=== PATIENT | male | born 1960 | race Hispanic/Latino ===

== ENCOUNTER 2018-03-01 14:45 | Emergency (ER) | payer MEDICAID ==
--- NOTE | 2018-03-01 16:24 | XRay Report ---
FINAL REPORT EXAM: XR SHOULDER 2+V LT HISTORY: shoulder pain TECHNIQUE: 3 views of left shoulder. PRIORS: None. FINDINGS: Fracture of left distal clavicle, with mild distraction. AC joint grossly intact. No dislocation. Degenerative change in the glenohumeral joint. Remainder of osseous and soft tissue structures grossly unremarkable. IMPRESSION: 1. Fracture left distal clavicle.
[2018-03-01] MEDS ORDERED: MOTRIN PO ONE (16:45)
[2018-03-01] MEDS ORDERED: PERCOCET 5/325 PO ONE (16:45)
--- NOTE | 2018-03-01 17:02 | Emergency Department Report ---
HPI - General Chief Complaint: Shoulder Injury Time Seen by Provider: 03/01/18 16:34 - HPI HPI: Room 10 The patient is a 57-year-old male presenting with chief complaint of left shoulder pain. The patient states approximately he slipped and fell down a wet rock injuring his left shoulder and left ribs. The patient states he went to [facility] approximately 3-4 days ago x-ray performed revealing his broken ribs. The patient was sent to room [facility] and there was noted to have bruising about his left shoulder. X- ray was performed to rule out showed an abnormality and the patient was sent to the ED for evaluation. Patient complains of pain in left shoulder and his score 10/10 Location: Left shoulder Duration: Since 01/23/2018 Quality: Pain Severity: 07/03 Modifying factors: [see above] Context: [see above] Mode of transportation: [not driving] ED Past Medical Hx - Past Medical History Previous Medical History?: Yes Hx Hypertension: Yes Additional medical history: hypothyroidism, etoh abuse, hepatitis C, syphilis, rib fracture (02/22/18) - Surgical History Past Surgical History?: Yes Additional Surgical History: right eye surgery, left hand, right knee - Family History Family history: no significant - Social History Smoking Status: Never Smoker Substance Use Type: None (denies illicit drug use), Alcohol (history of alcohol abuse. Currently in [place]) - Medications Home Medications: Home Medications Medication Instructions Recorded Confirmed Last Taken Type oxyCODONE /ACETAMINOPHEN [Percocet 1 - 2 tab PO Q6HR PRN #14 tablet 03/01/18 Unknown Rx 5/325] ED Review of Systems ROS: Stated complaint: LT DISLOCATED SHOULDER Other details as noted in HPI Eyes: denies: eye pain ENT: denies: throat pain Cardiovascular: denies: chest pain Gastrointestinal: denies: abdominal pain Musculoskeletal: arthralgia, myalgia. denies: back pain Neurological: denies: headache Physical Exam - Physical Exam Vital Signs: Vital Signs 03/01/18 14:45 Temperature 97.8 F Pulse Rate 74 Respiratory 18 Rate Blood Pressure 114/79 O2 Sat by Pulse 100 Oximetry Physical Exam: GENERAL: The patient is well-developed well-nourished male lying on stretcher not appearing to be in acute distress. [] HEENT: Normocephalic. Atraumatic. Left Extraocular motions are intact. Patient has moist mucous membranes. NECK: Trachea midline CHEST/LUNGS: Clear to auscultation. There is no respiratory distress noted. HEART/CARDIOVASCULAR: Regular. There is no tachycardia. There is no gallop rub or murmur. ABDOMEN: Abdomen is soft, nontender. Patient has normal bowel sounds. There is no abdominal distention. SKIN: There is ecchymosis about the left shoulder. There is no diaphoresis. NEURO: The patient is awake, alert, and oriented. The patient is cooperative. Cranial nerves II through XII grossly intact (with exception of 2, 3, 4, 6 on the right given right eye abnormality). The patient has normal speech MUSCULOSKELETAL: There is tenderness to palpation of the left shoulder. There is ecchymosis about the shoulder ED Course Vital Signs 03/01/18 14:45 Temperature 97.8 F Pulse Rate 74 Respiratory 18 Rate Blood Pressure 114/79 O2 Sat by Pulse 100 Oximetry ED Medical Decision Making - Radiology Data Radiology results: report reviewed (CT chest), image reviewed (left shoulder x- ray, CT chest) interpreted by me: Left shoulder x-ray-acute distal clavicle fracture CT chest (read by myself)- no pneumothorax. 2 lateral minimally displaced rib fractures [facility] [address] [place] [address] Cat Scan Report Signed Patient: LISHA VELASQUEZ MR#: [id number] : 1960 Acct:[id number] Age/Sex: 57 / M ADM Date: 03/01/18 Loc: ED Attending Dr: Ordering Physician: JORGE DA SILVA MD Date of Service: 03/01/18 Procedure(s): CT chest wo con Accession Number(s): [id number] cc: JORGE DA SILVA MD FINAL REPORT EXAM: CT CHEST WO CON HISTORY: left rib pain after fall TECHNIQUE: Spiral CT scanning of the chest. No IV contrast administered. Multiplanar reformations. PRIORS: None. FINDINGS: Chest: Examination limited due to lack of IV contrast administration. Lungs show mild-moderate elevation or eventration of left hemidiaphragm. Probable mild atelectasis versus scarring scattered in the bilateral lower lungs. No significant parenchymal contusions, lacerations or hemothorax. No apparent pneumothorax. Mediastinal structures are grossly unremarkable. No apparent hematoma or pneumomediastinum. Fractures of left anterolateral ribs 3-6, without significant displacement. More chronic-appearing or remote fractures of right anterolateral ribs 3-7. Degenerative change in the thoracic spine. Probable fatty infiltration in the liver. IMPRESSION: 1. Acute fractures in left upper ribs as reported. Probable remote posttraumatic change and chronic fractures involving right ribs. 2. No other acute intrathoracic findings. Transcribed By: [facility] Dictated By: CHARLENE MCCARTHY MD Electronically Authenticated By: CHARLENE MCCARTHY MD Signed Date/Time: 03/01/181742 DD/ 42 TD/TT: 03/01/181742 - Differential Diagnosis AC separation, clavicle fracture, shoulder dislocation, rib fractures, pneu Critical care attestation.: If time is entered above; I have spent that time in minutes in the direct care of this critically ill patient, excluding procedure time. ED Disposition Clinical Impression: Closed left clavicular fracture, Fracture of rib of left side Disposition: DC/TX-70 ANOTHER TYPE HLTHCARE Is pt being admited?: No Does the pt Need Aspirin: No Condition: Stable Instructions: Clavicle Fracture (ED) Additional Instructions: Return to the emergency department immediately should you develop worsening symptoms, fever, inability to tolerate food or liquid or any other concerns. Prescriptions: oxyCODONE /ACETAMINOPHEN [Percocet 5/325] 1 - 2 tab PO Q6HR PRN #14 tablet PRN Reason: Pain Referrals: ZAHEER PATRICK MD [Primary Care Provider] - 3-5 Days WARREN SARAVIA MD [Staff Physician] - 3-5 Days (Dr. Saravia is an orthopedic surgeon. Please follow up with him for further evaluation) Time of Disposition: 17:50
--- NOTE | 2018-03-01 17:48 | Cat Scan Report ---
FINAL REPORT EXAM: CT CHEST WO CON HISTORY: left rib pain after fall TECHNIQUE: Spiral CT scanning of the chest. No IV contrast administered. Multiplanar reformations. PRIORS: None. FINDINGS: Chest: Examination limited due to lack of IV contrast administration. Lungs show mild-moderate elevation or eventration of left hemidiaphragm. Probable mild atelectasis versus scarring scattered in the bilateral lower lungs. No significant parenchymal contusions, lacerations or hemothorax. No apparent pneumothorax. Mediastinal structures are grossly unremarkable. No apparent hematoma or pneumomediastinum. Fractures of left anterolateral ribs 3-6, without significant displacement. More chronic-appearing or remote fractures of right anterolateral ribs 3-7. Degenerative change in the thoracic spine. Probable fatty infiltration in the liver. IMPRESSION: 1. Acute fractures in left upper ribs as reported. Probable remote posttraumatic change and chronic fractures involving right ribs. 2. No other acute intrathoracic findings.
[2018-03-01 19:52] VITALS: BP 102/76
== END 2018-03-01 20:25 | disposition other institution (70) ==
LOC: ED 14:45
DX: S42.032A Displaced fracture of lateral end of left clavicle, initial encounter for closed fracture (principal); S22.41XA Multiple fractures of ribs, right side, initial encounter for closed fracture; I10 Essential (primary) hypertension; W20.8XXA Other cause of strike by thrown, projected or falling object, initial encounter; Y93.89 Activity, other specified; Y99.8 Other external cause status; Y92.89 Other specified places as the place of occurrence of the external cause
CPT/HCPCS: 71250

== ENCOUNTER 2018-04-01 08:34 | Outpatient (CLI) | payer MEDICAID ==
--- NOTE | 2018-04-01 09:11 | XRay Report ---
AP and lateral right knee: Pain. There is medial subluxation of the femur on the tibial plateau with significant narrowing of both medial and lateral joint compartments. There is no apparent fragmentation of the articular surfaces but there is ginger-articular spurring both medially and laterally. Suspect subchondral cysts involving the lateral tibial plateau. No fracture deformities. Adequate bone mineralization. Moderate suprapatellar effusion. Impression: Severe degenerative changes with subluxation and joint effusion.
== END 2018-04-01 08:35 | disposition home or self-care (01) ==
LOC: XRAY 08:34
PROVIDERS: ATTEND Orthopaedic Surgery
DX: M17.11 Unilateral primary osteoarthritis, right knee (principal); M25.461 Effusion, right knee; I10 Essential (primary) hypertension

== ENCOUNTER 2018-04-01 09:00 | Emergency (ER) | payer MEDICAID ==
[2018-04-01 09:22] VITALS: BP 128/93
[2018-04-01] MEDS ORDERED: NORCO 7.5/325 PO ONE (10:16)
--- NOTE | 2018-04-01 10:16 | Emergency Department Report ---
ED Lower Extremity HPI - General Chief Complaint: Extremity Injury, Lower Stated Complaint: RT KNEE PAIN Time Seen by Provider: 04/01/18 09:58 Source: patient Mode of arrival: Ambulatory Limitations: No Limitations - History of Present Illness Initial Comments: This is a 57-year-old male who presents with left knee pain from falling 4 days ago. Patient reports tripping over a sign in the [place] last . Patient reports falling forward landing on his face and knees and aggravated right knee. Patient reports hearing a loud pop when he fell and feeling unstable on right knee. Patient admits to numbness from toes 2 through 5 on the right foot, this is not new. He is currently being seen by Dr. Saravia for chronic degenerative changes to the right knee. He is currently taking tramadol for pain which is not improving symptoms. Patient reports having x- rays done this morning per Dr. Saravia. He has an appointment next week for follow-up with him for management of chronic pain. In the past he was seen in pain management and [facility] but unable to make appointments because he does not have a car. MD Complaint: knee injury Onset/Timin -: days(s) Injury: Knee: Right Type of Injury: unknown Place: street/outdoors Severity: moderate Severity scale (0 -10): 6 Improves With: nothing Worsens With: weight bearing Context: fall Associated Symptoms: snap/pop sensation, swelling, able to partially bear weight , ambulatory. denies: numbness, tingling, unable to bear weight Treatments Prior to Arrival: cold therapy, NSAIDS - Related Data Previous Rx's Medication Instructions Recorded Last Taken Type oxyCODONE /ACETAMINOPHEN [Percocet 1 - 2 tab PO Q6HR PRN #14 tablet 03/01/18 Unknown Rx 5/325] Tizanidine HCl [Zanaflex] 2 mg PO TID PRN #10 capsule 04/01/18 Unknown Rx Allergies Allergy/AdvReac Type Severity Reaction Status Date / Time codeine Allergy Unknown Verified 03/01/18 15:35 Penicillins Allergy Unknown Verified 03/01/18 15:35 ED Review of Systems ROS: Stated complaint: RT KNEE PAIN Other details as noted in HPI Constitutional: denies: chills, fever Respiratory: denies: cough, shortness of breath, wheezing Cardiovascular: denies: chest pain, palpitations Gastrointestinal: denies: abdominal pain, nausea, diarrhea Musculoskeletal: joint swelling (right knee), arthralgia (right knee). denies: back pain Skin: denies: rash, lesions Neurological: denies: headache, weakness, paresthesias Psychiatric: denies: anxiety, depression ED Past Medical Hx - Past Medical History Hx Hypertension: Yes Additional medical history: hypothyroidism, etoh abuse, hepatitis C, syphilis, rib fracture (02/22/18) - Surgical History Additional Surgical History: right eye surgery, left hand, right knee - Social History Smoking Status: Never Smoker Substance Use Type: None - Medications Home Medications: Home Medications Medication Instructions Recorded Confirmed Last Taken Type oxyCODONE /ACETAMINOPHEN [Percocet 1 - 2 tab PO Q6HR PRN #14 tablet 03/01/18 Unknown Rx 5/325] Tizanidine HCl [Zanaflex] 2 mg PO TID PRN #10 capsule 04/01/18 Unknown Rx ED Physical Exam - General Limitations: No Limitations General appearance: alert, in no apparent distress - Respiratory Respiratory exam: Present: normal lung sounds bilaterally. Absent: respiratory distress - Cardiovascular Cardiovascular Exam: Present: regular rate, normal rhythm. Absent: systolic murmur, diastolic murmur, rubs, gallop - GI/Abdominal GI/Abdominal exam: Present: soft, normal bowel sounds - Expanded Lower Extremity Exam Right Hip exam: Present: normal inspection, full ROM Upper Leg exam: Present: normal inspection, full ROM Knee exam: Present: tenderness, swelling, crepidus, effusion, pain w/ pronation/ supination, pain/laxity with valgus. Absent: abrasion, laceration, ecchymosis, deformity, dislocation, erythema, posterior draw sign, full knee extension (30 extension, patient unable to tolerate passive or active range of motion) Lower Leg exam: Present: normal inspection, full ROM Ankle exam: Present: normal inspection, full ROM Foot/Toe exam: Present: normal inspection, full ROM Neuro vascular tendon exam: Present: no vascular compromise Gait: Positive: observed and limited by pain ED Course Vital Signs 04/01/18 09:17 Temperature 97.8 F Pulse Rate 108 H Respiratory 16 Rate Blood Pressure 128/93 O2 Sat by Pulse 97 Oximetry ED Lower Extremity MDM - Radiology Data Radiology results: report reviewed AP and lateral right knee: Pain. There is medial subluxation of the femur on the tibial plateau with significant narrowing of both medial and lateral joint compartments. There is no apparent fragmentation of the articular surfaces but there is ginger-articular spurring both medially and laterally. Suspect subchondral cysts involving the lateral tibial plateau. No fracture deformities. Adequate bone mineralization. Moderate suprapatellar effusion. Impression: Severe degenerative changes with subluxation and joint effusion. - Medical Decision Making This is a 57 y.o. male presents with chronic right knee pain that was aggravated 4 days ago from a fall. Patient was examined by me. Findings were normal. Patient had x-rays done and this morning per Dr. Saravia, review report , Severe degenerative changes with subluxation and joint effusion. Patient informed of results. Continue taking and tramadol as prescribed by Dr. Saravia and follow-up with him for management of chronic pain. Start zanaflex and f/u with Dr. Saravia and pain management. Patient discharged home in stable condition. Follow up with PCP and orthopedics in 2-3 days. Critical care attestation.: If time is entered above; I have spent that time in minutes in the direct care of this critically ill patient, excluding procedure time. ED Disposition Clinical Impression: Effusion, right knee Degenerative joint disease Qualifiers: Osteoarthritis location: knee Osteoarthritis type: primary Laterality: right Qualified Code(s): M17.11 - Unilateral primary osteoarthritis, right knee Disposition: TO HOME OR SELFCARE Is pt being admited?: No Does the pt Need Aspirin: No Condition: Stable Instructions: Osteoarthritis (ED), Knee Effusion (ED) Additional Instructions: Rest Use ice or heat on affected area for 20 minutes and off for 2 hours. Take pain medication as needed for pain. Follow up with Primary Care Provider in 2-3 days. Prescriptions: Tizanidine HCl [Zanaflex] 2 mg PO TID PRN #10 capsule PRN Reason: Muscle Spasm Referrals: [facility] [Outside] - 3-5 Days WARREN SARAVIA MD [Staff Physician] - 3-5 Days Time of Disposition: 11:32 Print Language: IRISH
== END 2018-04-01 12:15 | disposition home or self-care (01) ==
LOC: ED 09:00
DX: M17.11 Unilateral primary osteoarthritis, right knee (principal); I10 Essential (primary) hypertension; E03.9 Hypothyroidism, unspecified; Z88.0 Allergy status to penicillin; Z88.5 Allergy status to narcotic agent; W18.30XA Fall on same level, unspecified, initial encounter; Y93.89 Activity, other specified; Y99.8 Other external cause status; Y92.89 Other specified places as the place of occurrence of the external cause
CPT/HCPCS: 99282

== ENCOUNTER 2018-04-17 10:19 | Emergency (ER) | payer MEDICAID ==
[2018-04-17] MEDS ORDERED: TORADOL IM ONE (10:49)
[2018-04-17] MEDS ORDERED: PERCOCET 5/325 PO ONE (10:49)
--- NOTE | 2018-04-17 10:59 | Emergency Department Report ---
Chief Complaint: Extremity Injury, Lower Stated Complaint: PAIN IN (R) KNEE/FEELS OUT OF PLACE Time Seen by Provider: 04/17/18 10:38 - HPI History of Present Illness: 57-year-old male presents to the emergency department with complaint of continued right knee pain as well as some spasms to the right leg. The patient says that he was due for a right knee replacement prior to falling and reinjuring the knee about one month ago. He is being followed by Dr. Saravia and came today for a preop. However he is having issues with his Medicare and therefore could not get the preop done. He called Dr. Saravia was told that he cannot be seen yesterday. He was brought in by a friend to be seen today. - ROS Review of Systems: Positive for right knee pain, muscle spasms Negative for fever, nausea, vomiting - Exam Vital Signs: Vital Signs 04/17/18 10:23 Temperature 98.0 F Pulse Rate 105 H Respiratory 18 Rate Blood Pressure 160/110 O2 Sat by Pulse 98 Oximetry Physical Exam: Patient is tender to palpation to the circumferential right knee. Heart and lungs sounds are normal to auscultation. He is awake and alert. MSE screening note: Focused history and physical exam performed. Due to findings the following was ordered: I have ordered for a right Knee x-ray to be done. Patient will be given a dose of Toradol and Percocet. I checked the [employer] prescription monitoring system and he received 60 tramadol , a one-month supply, and 20 [place] 7.5 mg, a 5 day supply, on April 01 ED Disposition for MSE Condition: Stable Referrals: PRIMARY CARE, [Primary Care Provider] - 3-5 Days
--- NOTE | 2018-04-17 11:37 | XRay Report ---
RIGHT KNEE, 3 views: History: Right knee pain. Moderate tricompartmental osteoarthritic changes are identified. No evidence for fracture or bone lesion. Mild lateral subluxation of the tibial plateau is suspected. Large joint effusion. No significant change is demonstrated since 7 since 06/11. IMPRESSION: Osteoarthritis. Joint effusion. No acute process.
--- NOTE | 2018-04-17 11:46 | Emergency Department Report ---
ED Lower Extremity HPI - General Chief Complaint: Extremity Injury, Lower Stated Complaint: PAIN IN (R) KNEE/FEELS OUT OF PLACE Time Seen by Provider: 04/17/18 10:38 Source: patient Mode of arrival: Ambulatory Limitations: No Limitations - History of Present Illness Initial Comments: This is a 57-year-old male presents with chronic right knee pain with spasms to right thigh. Patient states he went in for preop appointment with Dr. Saravia one month ago and unable to be prepped for surgery due to Medicare insurance. Patient states he was given pain medication at the beginning of the mop which lasts for [address] Saravia's office and they told him they where unable to see him today. Patient reports pain as 10 out of 10 on pain scale and worse with movement. He is having difficulty ambulating and had to be brought in today by a friend. Patient is requesting assistance with management of pain until he can get in to Dr. Saravia office on Sunday. MD Complaint: knee injury (right knee) Onset/Timin -: month(s) Injury: Knee: Right Type of Injury: unknown Place: street/outdoors Severity: moderate Severity scale (0 -10): 9 Improves With: nothing Worsens With: weight bearing, movement Context: fall Associated Symptoms: snap/pop sensation, swelling, able to partially bear weight , ambulatory. denies: numbness, tingling, unable to bear weight Treatments Prior to Arrival: other (prescription pain medication) - Related Data Home Medications Medication Instructions Recorded Confirmed Last Taken Cyclobenzaprine [Flexeril] 10 mg PO TID PRN 04/15/18 04/15/18 Unknown Levothyroxine [Synthroid] 25 mcg PO QAM 04/15/18 04/15/18 Unknown Lisinopril [Prinivil] 10 mg PO DAILY 04/15/18 04/15/18 Unknown Quetiapine Fumarate [Seroquel] 300 mg PO QHS 04/15/18 04/15/18 Unknown chlorproMAZINE [Thorazine] 25 mg PO Q4H PRN 04/15/18 04/15/18 Unknown oxyCODONE /ACETAMINOPHEN [Percocet 1 tab PO Q6HR PRN 04/15/18 04/15/18 Unknown 5/325] traMADol [Ultram] 50 mg PO Q4HR PRN 04/15/18 04/15/18 Unknown traZODone [Desyrel] 50 mg PO QHS 04/15/18 04/15/18 Unknown Previous Rx's Medication Instructions Recorded Last Taken Type Cyclobenzaprine [Flexeril 10 MG 10 mg PO TID PRN #15 tablet 04/17/18 Unknown Rx TAB] HYDROcodone/APAP 5-325 [Golden 1 each PO Q6HR PRN #5 tablet 04/17/18 Unknown Rx 5/325] Hydrochlorothiazide 12.5 mg PO DAILY #14 tablet 04/17/18 Unknown Rx Lisinopril [Zestril TAB] 5 mg PO QDAY #14 tablet 04/17/18 Unknown Rx Allergies Allergy/AdvReac Type Severity Reaction Status Date / Time codeine Allergy HOT FLASHES Verified 04/15/18 13:28 Penicillins Allergy HOT FLASHES Verified 04/15/18 13:28 ED Review of Systems ROS: Stated complaint: PAIN IN (R) KNEE/FEELS OUT OF PLACE Other details as noted in HPI Constitutional: denies: chills, fever Respiratory: denies: cough, shortness of breath, wheezing Cardiovascular: denies: chest pain, palpitations Gastrointestinal: denies: abdominal pain, nausea, vomiting, diarrhea Musculoskeletal: arthralgia (right knee pain). denies: back pain, joint swelling Neurological: denies: headache, weakness, numbness, paresthesias Psychiatric: denies: anxiety, depression ED Past Medical Hx - Past Medical History Previous Medical History?: Yes Hx Hypertension: Yes (X 3 YRS- OFF MEDS) Hx GERD: Yes Hx HIV: No Additional medical history: hypothyroidism, etoh abuse, hepatitis C, syphilis, rib fracture (02/22/18) - Surgical History Past Surgical History?: Yes Additional Surgical History: right eye surgery, left hand, right knee - Social History Smoking Status: Never Smoker Substance Use Type: None - Medications Home Medications: Home Medications Medication Instructions Recorded Confirmed Last Taken Type Cyclobenzaprine [Flexeril] 10 mg PO TID PRN 04/15/18 04/15/18 Unknown History Levothyroxine [Synthroid] 25 mcg PO QAM 04/15/18 04/15/18 Unknown History Lisinopril [Prinivil] 10 mg PO DAILY 04/15/18 04/15/18 Unknown History Quetiapine Fumarate [Seroquel] 300 mg PO QHS 04/15/18 04/15/18 Unknown History chlorproMAZINE [Thorazine] 25 mg PO Q4H PRN 04/15/18 04/15/18 Unknown History oxyCODONE /ACETAMINOPHEN [Percocet 1 tab PO Q6HR PRN 04/15/18 04/15/18 Unknown History 5/325] traMADol [Ultram] 50 mg PO Q4HR PRN 04/15/18 04/15/18 Unknown History traZODone [Desyrel] 50 mg PO QHS 04/15/18 04/15/18 Unknown History Cyclobenzaprine [Flexeril 10 MG 10 mg PO TID PRN #15 tablet 04/17/18 Unknown Rx TAB] HYDROcodone/APAP 5-325 [Golden 1 each PO Q6HR PRN #5 tablet 04/17/18 Unknown Rx 5/325] Hydrochlorothiazide 12.5 mg PO DAILY #14 tablet 04/17/18 Unknown Rx Lisinopril [Zestril TAB] 5 mg PO QDAY #14 tablet 04/17/18 Unknown Rx ED Physical Exam - General Limitations: No Limitations General appearance: alert, in no apparent distress - Respiratory Respiratory exam: Present: normal lung sounds bilaterally. Absent: respiratory distress - Cardiovascular Cardiovascular Exam: Present: regular rate, normal rhythm. Absent: systolic murmur, diastolic murmur, rubs, gallop - GI/Abdominal GI/Abdominal exam: Present: soft, normal bowel sounds - Expanded Lower Extremity Exam Right Hip exam: Present: full ROM, tenderness Upper Leg exam: Present: normal inspection, full ROM Knee exam: Present: tenderness, swelling, crepidus, effusion, pain w/ pronation/ supination. Absent: abrasion, laceration, ecchymosis, deformity, dislocation, erythema Lower Leg exam: Present: normal inspection, full ROM Ankle exam: Present: normal inspection, full ROM Foot/Toe exam: Present: normal inspection, full ROM Neuro vascular tendon exam: Present: no vascular compromise Gait: Positive: observed and limited by pain - Neurological Exam Neurological exam: Present: alert, oriented X3 - Psychiatric Psychiatric exam: Present: normal affect, normal mood - Skin Skin exam: Present: warm, dry, intact, normal color. Absent: rash ED Course Vital Signs 04/17/18 04/17/1804/17/18 10:23 10:58 11:28 Temperature 98.0 F Pulse Rate 105 H Respiratory 18 20 18 Rate Blood Pressure 160/110 Blood Pressure [Left] O2 Sat by Pulse 98 Oximetry 04/17/18 04/17/18 04/17/18 12:19 12:38 13:15 Temperature Pulse Rate 95 H 94 H 92 H Respiratory 20 Rate Blood Pressure 171/113 146/106 Blood Pressure 171/113 [Left] O2 Sat by Pulse 100 100 Oximetry ED Lower Extremity MDM - Radiology Data Radiology results: report reviewed RIGHT KNEE, 3 views: History: Right knee pain. Moderate tricompartmental osteoarthritic changes are identified. No evidence for fracture or bone lesion. Mild lateral subluxation of the tibial plateau is suspected. Large joint effusion. No significant change is demonstrated since 7 since 06/11. IMPRESSION: Osteoarthritis. Joint effusion. No acute process. - Medical Decision Making This is a 57 y.o. male presents with chronic right knee pain and swelling. Patient was examined by me and Dr. Haskins. Patient is none toxic appearing and stable. Blood pressure elevated on arrival, will reevaluate prior to discharge. Given toradol 15 mg IM and norco 5/325 mg po once while in ER. Xray of right knee obtained and dictated by radiologist. Osteoarthritis. Joint effusion. No acute process. Patient informed of results. He is currently managed by Dr. Saravia and scheduled for knee replacement. Patient received norco and tramadol 03/02 according to [facility] from Dr. Saravia. Patient given clonidine 0.1 mg by mouth once in ER. Blood pressure trending down. Start lisinopril and hydrochlorothiazide and f/u with PCP. Start cyclobenzaprine and norco 5/325 mg po daily #5 For pain. Plan discussed with patient to discharge home and treat outpatient. Follow up with Dr. Saravia in 2 to 3 days. He agrees with ER plan. Patient discharged home in stable condition. Follow up with PCP. Critical care attestation.: If time is entered above; I have spent that time in minutes in the direct care of this critically ill patient, excluding procedure time. ED Disposition Clinical Impression: Effusion, right knee, Asymptomatic hypertension Right knee pain Qualifiers: Chronicity: chronic Qualified Code(s): M25.561 - Pain in right knee; G89.29 - Other chronic pain Osteoarthritis, knee Qualifiers: Osteoarthritis type: primary Laterality: right Qualified Code(s): M17.11 - Unilateral primary osteoarthritis, right knee Hypertension Qualifiers: Hypertension type: essential hypertension Qualified Code(s): I10 - Essential ( primary) hypertension Disposition: TO HOME OR SELFCARE Is pt being admited?: No Does the pt Need Aspirin: No Condition: Stable Instructions: Osteoarthritis (ED), Knee Effusion (ED), Arthralgia (ED), Hypertension (ED) Additional Instructions: Rest Use ice or heat on affected area for 20 minutes and off for 2 hours. Take pain medication as needed for pain. Don't drive or operate heavy machinery while taking muscle relaxers because they may cause drowsiness. Follow up with Dr. Saravia orthopedic surgery in 2-3 days. Follow up with Primary Care Provider in 2-3 days. Prescriptions: Cyclobenzaprine [Flexeril 10 MG TAB] 10 mg PO TID PRN #15 tablet PRN Reason: Muscle Spasm Hydrochlorothiazide 12.5 mg PO DAILY #14 tablet HYDROcodone/APAP 5-325 [Golden 5/325] 1 each PO Q6HR PRN #5 tablet PRN Reason: Pain Lisinopril [Zestril TAB] 5 mg PO QDAY #14 tablet Referrals: WARREN SARAVIA MD [Staff Physician] - 3-5 Days [facility] [Outside] - 3-5 Days Time of Disposition: 12:10 Print Language: GUINEAN
[2018-04-17] MEDS ORDERED: CATAPRES PO ONE ×2 (12:34→12:35)
[2018-04-17 13:24] VITALS: BP 146/106
== END 2018-04-17 13:51 | disposition home or self-care (01) ==
LOC: ED 10:19
DX: M17.11 Unilateral primary osteoarthritis, right knee (principal); M25.461 Effusion, right knee; G89.29 Other chronic pain; I10 Essential (primary) hypertension; K21.9 Gastro-esophageal reflux disease without esophagitis; E03.9 Hypothyroidism, unspecified; Z88.5 Allergy status to narcotic agent; Z88.0 Allergy status to penicillin; W18.30XA Fall on same level, unspecified, initial encounter; Y93.89 Activity, other specified; Y99.8 Other external cause status; Y92.488 Other paved roadways as the place of occurrence of the external cause
CPT/HCPCS: 73562; 96372; 99283; J1885